=== PATIENT | male | born 1975 | race Caucasian/White ===

== ENCOUNTER 2025-07-13 21:06 | Emergency (ER) | payer BC, SELFPAY ==
[2025-07-13 21:17] VITALS: BP 108/73; BP 150/94; PULSE 93; RESP 18; TEMP 36.4; O2SAT 95; BMI 27.2
--- NOTE | 2025-07-13 21:45 | PC.NURSE ---
Poison control contacted regarding potential overdose. No special instructions given at this time.
[2025-07-13 21:46] LABS: MANUAL DIFF FLAG NO
[2025-07-13 21:47] LABS: Hematocrit 39.0 % (42.0-52.0); Hemoglobin 13.0 g/dl (14.0-18.0); Imm Gran Abs Auto 0.05 X10*3/uL (0.00-0.03); Imm Gran Pct Auto 0.8 % (0.0-0.4); Lymphocytes Absolute Auto 2.2 X10*3/uL (1.2-4.9); Mean Corpuscular HGB Conc 33.3 g/dl (31.0-36.0); Mean Corpuscular Hemoglobin 29.7 pg (27.0-33.0); Mean Corpuscular Volume 89.0 fL (80.0-98.0); NRBC Abs Auto 0.000 X10*3/uL (0.0-0.012); NRBC Pct Auto 0.0 /100WBC (0.0-0.2); Platelet Count 305 X10*3/uL (160-400); Red Blood Count 4.38 X10*6/uL (4.60-5.80); White Blood Count 6.5 X10*3/uL (4.8-10.8)
--- OUTSIDE RECORDS SUMMARY | 2025-07-13 21:55 | XMS_ITS | Data Portability ---
Author Organization [facility], [facility] Address [address] [place] [address] Care Team Providers Care Drafter Construction Name Role Phone SABINA YANG Primary Care Provider Assessment No assessment recorded. Plan of Treatment Reminders Order Date Submit Date Provider Last Modified By Organization Details Last Modified Time Details Appointments None recorded. Lab None recorded. Referral None recorded. Procedures None recorded. Surgeries None recorded. Imaging XR, wrist, 3 or more view - recheck pt 3 views left wrist rm [phone] [email or web address] [facility], [address], [place], [address], 5 15:36:28 XR, hand, 3 or more view - recheck pt 3 views right hand rm [phone] HAIM [facility] Office, [address], [address], [place], [address], 5 15:36:49 Medication Orders None recorded. Patient TargetsNo targets recorded. Patient InstructionsNo instructions recorded. Reason for Referral None Reported. Results Created Date Observation Date Name Description Value Unit Range Abnormal Flag Note LastModifiedBy Organization Detail LastModifiedTime 10/07/1910/07/2024 XR, wrist , 3 or more view [email or web address] ?Encry pted=s hAaTro YD8dLq bEUv6g %2BXZw aYqtaq 0bqfl% 2Fg9IQ a4ajBk vP9nXo QUaueC m3YtLR FvZlgJ JJ8mAn HZtai3 6i9058 AC0Kqb HmMUaO vKiQtr MwF INTERFACE [facility] [address] [address], [place], [address], 10/07/2024 15:35:08 10/07/19 25 10/07/2024 XR, wrist , 3 or more view [email or web address] ?Encry pted=s hAaTro YD8dLq bEUv6g %2BXZw aYqtaq 0bqfl% 2Fg9IQ a4ajBk vP9nXo QUaueC m3YtLR FvZlgJ JJ8mAn HZtai3 5w5056 AC0Kqb HmMUaO vKiQtr MwF INTERFACE [facility] [address], [address], 10/07/2024 15:35:10 10/07/19 25 10/07/2024 XR, hand, 3 or more view [email or web address] ?Encry pted=s hAaTro YD8dLq bEUv6g %2BXZw aYqtaq 0bqfl% 2Fg9IQ a4ajBk vP9nXo QUaueC m3YtLR FvZlgJ JJ8mAn HZtai3 5r4021 AC0Kqb HmMUaG jKiQtr MwF INTERFACE [facility] [address] [address], [place], [address], 10/07/2024 15:36:50 10/07/19 25 10/07/2024 XR, hand, 3 or more view [email or web address] ?Encry pted=s hAaTro YD8dLq bEUv6g %2BXZw aYqtaq 0bqfl% 2Fg9IQ a4ajBk vP9nXo QUaueC m3YtLR FvZlgJ JJ8mAn HZtai3 4d1867 AC0Kqb HmMUaG jKiQtr MwF INTERFACE [facility] [address] [facility] [address], [place], [address], 10/07/2024 15:36:52 Result Notes Documentation Provider Name and Address Organization Details Recorded Time Xr, Wrist, 3 Or More View : [email or web address] Encrypted=orGrIotGS7aSwxO Uv6g%7MJIgaKbpmv5tesy%2Fg 4NZh8ppPlvV8oLsYNgzcRy4Cd QLLnFumLCY3aXlJRpjq37x759 9LM5ZfxChJFyJcGkTgoDuG Not Available [facility] 10/07/2024 15:35: 09 Xr, Wrist, 3 Or More View : [email or web address] Encrypted=zlNpKpoPI7fVpxA Uv6g%1WUPwpCnpka6mnyc%2Fg 2ZUa0rpVhmI8pUgLPdbiMi3Sl NJWfEtdDER1bSuKAaiw76v498 5TT5YwsUcVFbHvZlBzlXmX Not Available [facility] 10/07/2024 15:35: 11 Xr, Hand, 3 Or More View : [email or web address] Encrypted=xoZlSjoVN6lMmzA Uv6g%0WADvsZnyrc9frqp%2Fg 7CIt6kxTobL4tLtRStuvFe1Lc WYFjJhkDQM0oCgPDkzt90o939 3UX8VnmHhBGeRkXsAhkOzO Not Available [facility] 10/07/2024 15:36: 50 Xr, Hand, 3 Or More View : [email or web address] Encrypted=ksBnOkmKV3zBmqO Uv6g%4AXEqdPwbsw2kfsc%2Fg 3VRv3uzBfhF7jUiFKhpyRd6Ct JKKtMlvVER0iVzLKwdi22d461 6NA7IjcNoREbNcHdGzsOrC Not Available [facility] 10/07/2024 15:36: 52 Procedures Surgical History Date Name Laterality Status Provider Name and Address Organization Details Recorded Time 3 Shoulder Surgery completed Mansi Moran [place] - [facility] 10/07/2024 16:04:07 Imaging Results None recorded. Procedure Notes None recorded. Medical Equipment None Reported. Medications Name Sig Start Date Stop Date Status Note LastModified by Organization Details LastModified Time buspirone 5 mg tablet TAKE 1 TABLET BY MOUTH TWICE DAILY 10/02 completed Not Available Not Available Not Available cetirizine 10 mg tablet TAKE 1 TABLET BY MOUTH EVERY DAY active Not Available Not Available No t Available prednisone 20 mg tablet TAKE 3 TABLETS BY MOUTH DAILY FOR 3 DAYS THEN TAKE 2 TABLETS BY MOUTH DAILY FOR 3 DAYS THEN TAKE 1 TABLET BY MOUTH DAILY FOR 3 DAYS 10/02 completed Not Available Not Available Not Available dextroamphe tamine-amph etamine 10 mg tablet TAKE 1 TABLET BY MOUTH TWICE DAILY 10/02 completed Not Available Not Available Not Available sertraline 100 mg tablet TAKE 1 TABLET BY MOUTH DAILY 10/02 completed Not Available Not Available Not Available triamcinolo ne acetonide 0.1 % topical cream APPLY A THIN FILM TO THE AFFECTED AREA TWICE DAILY X14 DAYS 10/02 completed Not Available Not Available Not Available lamotrigine 25 mg tablet TAKE 2 TABLETS BY MOUTH TWICE DAILY 10/02 completed Not Available Not Available Not Available dextroamphe tamine-amph etamine 30 mg tablet TAKE 1 TABLET BY MOUTH TWICE DAILY 10/02 completed Not Available Not Available Not Available dextroamphe tamine-amph etamine 20 mg tablet TAKE 1 TABLET BY MOUTH TWICE DAILY 10/02 completed Not Available Not Available Not Available sertraline 25 mg tablet TAKE 1 TABLET BY MOUTH DAILY FOR 14 DAYS 10/02 completed Not Available Not Available Not Available omeprazole 20 mg capsule,del ayed release TAKE ONE CAPSULE BY MOUTH TWICE DAILY active Not Available Not Available No t Available montelukast 10 mg tablet TAKE 1 TABLET BY MOUTH DAILY BEFORE DINNER active Not Available Not Available No t Available sertraline 50 mg tablet TAKE 1 TABLET BY MOUTH DAILY. START IN 2 WEEKS AFTER COMPLETIN G THE 25 MG 10/02 completed Not Available Not Available Not Available lamotrigine 100 mg tablet TAKE 1 TABLET BY MOUTH TWICE DAILY active Not Available Not Available No t Available methylpheni date ER 27 mg tablet,exte nded release 24 hr TAKE 1 TABLET BY MOUTH TWICE DAILY 10/02 completed Not Available Not Available Not Available aripiprazol e 10 mg tablet TAKE 1 TABLET BY MOUTH DAILY active Not Available Not Available No t Available Adderall (30mg) active Not Available Not Available Not Available aripiprazol e ARIPipraz ole 10MG Tablet 2022 active Statu s: 'Curr ent'; Not Available Not Available Not Available Horizon Nasal Cpap System active Not Available Not Available Not Available oxycodone HCl-oxycodo ne-ASA as directed 1 Tab po Q 4-6 hrs prn pain. DO NOT DRIVE WHILE TAKING THIS MEDICATIO N 10/02 completed Statu s: 'Curr ent'; Not Available Not Available Not Available PreviDent 5000 Booster Plus 1.1 % dental paste APPLY TO TEETH AND BRUSH TWICE DAILY AFTER A MEAL DO NOT RINSE AO DRINK WATER FOR 30 MINUTES AFTER active Not Available Not Available No t Available Vitals Date Recorded Body height Body mass index (BMI) Body weight Provider Name and Address Organization Details Last Updated DateTime 10/07/2024 165.1 cm 27 kg/m2 95761.96 g Mansi Moran [place] - [facility] 10/07/2024 15:28:35 Social History None recorded. Functional Status None recorded. Mental Status None recorded. Family History Nothing Reported. Medical History No medical history recorded. Past Encounters Encounter ID Performer Location Encounter Start Date Encounter Closed Date Diagnosis/Indication Diagnosis SNOMED-CT Code Diagnosis ICD10 Code Diagnosis IMO Codes Diagnosis Note [id number] [facility]THONY [address] [address] [facility] [place] [address] 10/07/2024 15:01:01 10/14/2024 10:07:09 Pain of left wrist 9859625010 18691 M25.532 [id number] Ulnar impa ction syndrome of left wrist 6576749309 1470216 M25.832 [id number] Health Concerns Section Related Observation LastModified by Organization Anjelica horne LastModified Time None Recorded Concern Status LastModified by Organization Details LastModified Time None Recorded Advance Directives Directive None Recorded Payers Insurance Date Sequence Insurance Name Policy Number Policy Amato Covered Member ID Amato Member ID Guarantor Name 10/14/2024 1 [place]: [employer] [address] Willam Dickerson [id number] Willam Dickerson Notes Date Note Type Note Provider Name and Address Organization Details Recorded Time 10/07/2024 text/html I am seeing this patient under the supervision of Dr. Brown who was available but who did not see the patient. HPI: Patient is a 49-year-old male presenting to the office today for evaluation of right wrist pain. Reports this has been ongoing for the past couple of years. Reports the pain is intermittent. He is unable to localize a particular area of pain. Reports there are no particular triggers for the pain. Denies recent falls or injuries. Patient denies numbness or tingling. Of note, patient has been seen here for right wrist pain back [place] [address] Brown who diagnosed him with ulnar impaction syndrome. He also obtained an EMG back then which was normal. Past family, medical, social history and review of systems has been reviewed, updated and is located in the patient's chart. Examination: The patient is well appearing, alert and oriented x3 and in no acute distress. Inspection of the right hand and wrist reveals no edema, atrophy, erythema, ecchymoses or deformity. Skin is intact, no open wounds. Full movement of the forearm, wrist and digits. Intact median and ulnar innervated intrinsics. Intact extrinsic wrist and digit flexors and extensors. Intact sensation of median, ulnar and radial nerve distributions. Good capillary refill. Patient is tender around the TFCC region. Otherwise nontender about the wrist, hand, and digits. Median nerve compression test causes some numbness and tingling in the fourth and fifth fingers. Positive Synergy test. X-rays ordered, obtained and reviewed independently today at [facility]: 6 view x-rays of the right hand and wrist reveal no acute fractures or dislocations. Mild positive ulnar variance noted. Impression: Right wrist ulnar impaction syndrome, possible atypical carpal tunnel syndrome presentation Plan: I discussed my findings and the situation with the patient. We discussed potential treatment options at this time including anti-inflammatories , wrist brace, occupational therapy, and cortisone injection. We discussed the option of an MRI given his chronic symptoms, however we discussed that it will likely not change our treatment especially as he has not consistently tried many extensive conservative treatments at this time. Patient would like to hold off on an injection for now as he is not having symptoms currently. He was given a prescription for a wrist lacer brace to utilize when his symptoms flareup again and he will call the office when this occurs. At that time we can consider possible cortisone injection for the right wrist TFCC region. Patient understands and agrees with this plan. All questions were answered. The patient is ambulatory, but has weakness and/or instability of their extremity which requires stabilization from this semi-rigid/rigid orthosis to improve their function. Verbal and written instructions for the use and application of this item were given. Patient was instructed that should the brace result in increased pain, decreased sensation, increased swelling or an overall worsening of their medical condition, to please contact our office immediately. Speech recognition bus cleaner software was used to create portions of this document. An attempt at proofreading has been made to minimize errors. Please call for corrections. Anahi Kirkpatrick PA-C [facility] [address], [place], [address], [facility] - [facility] 10/07/2024 16:34:29
--- OUTSIDE RECORDS SUMMARY | 2025-07-13 21:55 | XMS_ITS | Clinical Summary ---
Author Organization [facility] Health Address [address] [place] [address] Care Team Providers Care Legal Practice Manager Name Role Phone Unavailable Primary Care Provider Unavailabl e Social History Tobacco Use Types Packs/Day Years Used Date Smoking Tobacco: Never Assessed Sex and Gender Information Value Date Recorded Sex Assigned at Not on file Legal Sex Male 8:48 PM PST Gender Identity Not on file Sexual Orientation Not on file Plan of Treatment Not on file
--- OUTSIDE RECORDS SUMMARY | 2025-07-13 21:55 | XMS_ITS | Encounter Summary ---
Author Organization [facility] Address [address] [place] [address] Care Team Providers Care Elevator Repairer Helper Name Role Phone Unavailable Primary Care Provider Unavailabl e Prior Encounters Date Type Department Care Team Description 09/21/2019 Converted 13x Documents [facility] [address], [place] [address] <No scans attached> 09/21/2019 Converted CPS Chart Documents [facility] [address], [place] [address] <No scans attached> Plan of Treatment Not on file Procedures Procedure Name Priority Date/Time Associated Diagnosis Comments ORAL HYGIENE INSTRUCTIONS Routine 2015 12:00 AM PDT TOPICAL APPLICATION OF FLUORIDE VARNISH Routine 01/19/2016 12:00 AM PDT PROPHYLAXIS - ADULT Routine 01/19/2016 1 2:00 AM PDT PERIODIC ORAL EVALUATION - ESTABLISHED PATIENT Routine 01/19/2016 12:00 AM PDT OFFICE VISIT FOR OBSERVATION (DURING REGULARLY SCHEDULED HOURS) - NO OTHER SERVICES PERFORMED Routine 01/13/2016 12:00 AM PDT 19 RECEMENT CROWN Routine 10/18/2015 12: 00 AM PST 19 CERECFIRED CROWNPOST Routine 10/18/19 16 12:00 AM PST OFFICE VISIT FOR OBSERVATION (DURING REGULARLY SCHEDULED HOURS) - NO OTHER SERVICES PERFORMED Routine 10/03/2015 12:00 AM PST 19 DO COMPOSITE FILLING Routine 07/22/20 15 12:00 AM PST 9 TURNER COMPOSITE FILLING Routine 07/22/20 15 12:00 AM PST 14 LO AMALGAM 2 SURFACE Routine 07/15/20 15 12:00 AM PST 30 B AMALGAM 1 SURFACE Routine 5 12:00 AM PST OCCLUSAL GUARD SOFT APPLIANCE, FULL ARCH Routine 07/15/2015 12:00 AM PST ORAL HYGIENE INSTRUCTIONS Routine 2014 12:00 AM PST TOPICAL APPLICATION OF FLUORIDE VARNISH Routine 07/15/2015 12:00 AM PST PROPHYLAXIS - ADULT Routine 07/15/2015 1 2:00 AM PST COMPREHENSIVE ORAL EVALUATION - NEW OR ESTABLISHED PATIENT Routine 07/15/2015 12:00 AM PST PANORAMIC RADIOGRAPHIC IMAGE Routine 07/15/2015 12:00 AM PST INTRAORAL - COMPREHENSIVE SERIES OF RADIOGRAPHIC IMAGES Routine 07/15/2015 12:00 AM PST INTRAORAL PHOTO Routine 07/15/2015 12:00 AM PST INTRAORAL PHOTO Routine 07/15/2015 12:00 AM PST INTRAORAL PHOTO Routine 07/15/2015 12:00 AM PST INTRAORAL PHOTO Routine 07/15/2015 12:00 AM PST 19 COMPOSITE FILLING Routine 015 12:00 AM PST 18 SHELEA COMPOSITE FILLING Routine 07/15/20 15 12:00 AM PST Visit Diagnoses Not on file
[2025-07-13 22:02] LABS: Alanine Aminotransferase 58 U/L (0-40); Albumin Level 4.3 g/dL (3.5-5.0); Alkaline Phosphatase 76 U/L (39-117); Anion Gap 14 (12-20); Aspartate Amino Transferase 37 U/L (5-37); Blood Urea Nitrogen 7 mg/dL (9-16); Calcium 9.7 mg/dL (8.4-10.2); Carbon Dioxide 28 mmol/L (22-29); Chloride 102 mmol/L (96-108); Creatinine Clr Calc Pharmacy 101.6; Estimated Glomerular Filt Rate > 60; Potassium 3.5 mmol/L (3.3-5.1); Sodium 140 mmol/L (135-145); Total Protein 6.7 g/dL (6.5-8.0)
[2025-07-13 22:15] LABS: Cannabinoid Screen Urine Not Detected (Not Detect)
--- NOTE | 2025-07-13 23:06 | PC.NURSE ---
pt reporting an anal fistula that was recently operated on. requesting gauze for area
[2025-07-13 23:38] VITALS: BP 93/65; PULSE 87; RESP 17; TEMP 36.4; O2SAT 98
--- NOTE | 2025-07-14 00:10 | ED.PSYCH ---
HPI - Psych General Chief Complaint: Psychiatric Symptoms Stated Complaint: Mental health crisis took r1dqrlxhxueh meds 150/94 Time Seen by Provider: 07/13/25 21:52 Source: patient, EMS, RN notes reviewed and old records reviewed History of Present Illness ED Provider: Dr. Liana Esqueda HPI Narrative: 49-year-old male with a history of depression, ADHD presenting with depression after breaking up with his girlfriend. Patient reports that his brother called 911 because he was worried about him. States ?I think he over-reacted?. He is prescribed amphetamines for ADHD. Had a recent surgery for an anal fistula and has been taking oxycodone for that but has not had any pain medication today. No reported fever. He denies feeling suicidal. States that he took an extra dose of his lamotrigine and Abilify because he ?thought it might help his severe depression?. He was never trying to hurt himself. Denies visual or auditory hallucinations. Denies any drug or alcohol use. He has no access to firearms. No history of suicide attempt. Related Data Allergies Allergy/AdvReac Type Severity Reaction Status Date / Time cats Allergy Unknown Unknown Uncoded 07/13/25 21:28 cats/dust Allergy Unknown Unknown Uncoded 07/13/25 21:28 seasonal Allergy Unknown Unknown Uncoded 07/13/25 21:28 Review of Systems Review of Systems: as per HPI, full review of systems performed and negative but for the above mentioned pertinent positives and negatives. [facility] Social History Social History Smoked in Last 30 Days: No Use of substances other than those prescribed or required for medical reasons: No Advance Directives: No Advance Directives Information Provided: No Physical Exam Exam: Exam: GENERAL: Conversant, no acute distress. SKIN: Normal skin color for ethnicity, warm, dry, no rashes noted. HEENT:? Normocephalic, atraumatic, no stridor, posterior oropharynx nonerythematous, dentition intact, EOMI. NECK: Soft, supple, full ROM, midline structures nontender, no step-offs, no deformities, no lymphadenopathy. CHEST: Heart regular rate and rhythm, no murmurs, symmetric chest rise and fall. PULMONARY: Clear to auscultation bilaterally, no labored breathing, no wheezes/rhales/rhonchi. ABDOMINAL: Soft, nondistended, nontender, positive bowel sounds in all quadrants. : Deferred. MUSCULOSKELETAL: Normal tone, full range of motion, no deformities, no peripheral edema. NEURO: Alert and oriented x3, CN II through XII intact, equal strength and sensation bilateral upper and lower extremities, no focal neurologic deficits.? PSYCHIATRIC: Flat affect, fluid speech, good eye contact and appropriate demeanor. Vital Signs: Vital Signs: Last Vital Signs Temp 97.6 F 07/14/25 02:39 Pulse 92 07/14/25 02:39 Resp 16 07/14/25 02:39 BP 115/70 07/14/25 02:39 Pulse Ox 100 07/14/25 02:39 O2 Del Method Room Air 07/14/25 02:39 BMI result Body Mass Index 27.2 Medical Decision Making Medical Decision Making [facility] Narrative: Patient presents with psychologic complaints. Differential diagnosis includes suicidal ideations, homicidal ideations, depression, anxiety, mood disorder, decompensated mental illnesses such as schizophrenia or bipolar disorder, medication noncompliance, among many others. Medical clearance protocol was initiated. Patient brought in as a section 12 by police. After my evaluation, I do not feel that the patient necessarily needs hospitalization, unless there is some suicidal concern raised by the family. He is mentating appropriately, not currently intoxicated and answering questions true fully. With an a crisis earlier today but is feeling improved. Patient evaluated by crisis team. Catalina spoke with his brother, Diego, who was actually involved in the situation leading up to the patient being hospitalized today. He has very little concern for self-harm today. Agrees that he is safe for discharge home. Patient is jil for safety. Feel it is reasonable for him to follow up with his mental health providers as an outpatient. Using shared decision making, plan for discharge home to follow-up with primary care and/or specialist. Patient understands and agrees with plan for discharge. Discharged home in stable condition. Differential Diagnosis Differential Diagnoses: The differential diagnosis associated with the presentation includes (as above) Admission/Observation Consideration of admission/observation: Escalation of care including admission/observation considered Consult Healthcare Provider Management of the patient was discussed with: Behavioral Health Provider Lab Data [facility] Lab Attestation statement: I reviewed the patient's lab results. 07/13/25 21:42 07/13/25 21:42 Labs: Lab Results 07/13/25 07/13/25 Range/Units 21:42 21:55 WBC 6.5 (4.8-10.8) X10*3/uL RBC 4.38 L (4.60-5.80) X10*6/uL Hgb 13.0 L (14.0-18.0) g/dl Hct 39.0 L (42.0-52.0) % MCV 89.0 (80.0-98.0) fL MCH 29.7 (27.0-33.0) pg MCHC 33.3 (31.0-36.0) g/dl RDW 12.9 (11.0-16.0) % Plt Count 305 (160-400) X10*3/uL MPV 8.2 L (9.4-12.4) fL Immature Gran % (Auto) 0.8 H (0.0-0.4) % Neut % (Auto) 51.9 (45-73) % Lymph % (Auto) 34.2 (20-40) % Mcdonald % (Auto) 10.3 (2-11) % Eos % (Auto) 2.0 (0-4) % Baso % (Auto) 0.8 (0-2) % Lymph # (Auto) 2.2 (1.2-4.9) X10*3/uL Mcdonald # (Auto) 0.7 (0.1-1.2) X10*3/uL Eos # (Auto) 0.1 (0.0-0.4) X10*3/uL Baso # (Auto) 0.1 (0.0-0.2) X10*3/uL Abs Immat Gran (auto) 0.05 H (0.00-0.03) X10*3/uL Absolute Neuts (auto) 3.4 (2.0-8.3) x10*3/uL Absolute Nucleated RBC 0.000 (0.0-0.012) X10*3/uL Nucleated RBC % (auto) 0.0 (0.0-0.2) /100WBC Sodium 140 (135-145) mmol/L Potassium 3.5 (3.3-5.1) mmol/L Chloride 102 (96-108) mmol/L Carbon Dioxide 28 (22-29) mmol/L Anion Gap 14 (12-20) BUN 7 L (9-16) mg/dL Creatinine 0.84 (0.5-1.4) mg/dL Estim Creat Clear Calc 101.6 Estimated GFR > 60 Random Glucose 97 (60-115) mg/dL Calcium 9.7 (8.4-10.2) mg/dL Total Bilirubin 0.2 (0.0-1.0) mg/dL AST 37 (5-37) U/L ALT 58 H (0-40) U/L Alkaline Phosphatase 76 (39-117) U/L Total Protein 6.7 (6.5-8.0) g/dL Albumin 4.3 (3.5-5.0) g/dL Urine Opiates Screen Not Detected (Not Detect) Ur Buprenorphine Scrn Not Detected (Not Detect) ng/mL Ur Oxycodone Screen Positive H (Not Detect) ng/mL Urine Methadone Screen Not Detected (Not Detect) ng/mL Urine Fentanyl Screen Not Detected (Not Detect) Ur Barbiturates Screen Not Detected (Not Detect) Ur Phencyclidine Scrn Not Detected (Not Detect) Ur Amphetamines Screen POSITIVE H (Not Detect) U Benzodiazepines Scrn POSITIVE H (Not Detect) Urine Cocaine Screen Not Detected (Not Detect) U Marijuana (THC) Screen Not Detected (Not Detect) Ethyl Alcohol < 10 mg/dL Independent Historian Clinical information obtained from an independent historian. History obtained from or confirmed by: EMS and Other (Diego Gonzales) External Record Review External record reviewed: Inpatient record Chronic Conditions Patient?s care impacted by: Other (Depression) Social Determinants Patient?s care significantly limited by Social Determinants of Health including: Other Social Determinant of Health Discharge Plan Discharge Clinical Impression: Depression Patient Disposition: Home, Self-Care Instructions: Depression (ED) Additional Instructions: You were seen in our Emergency Department today for treatment of a behavioral health issue. It is important after your visit that you follow up with either your behavioral health provider or a primary care doctor within 7 days.? If you have trouble finding a therapist you can reach out to [address] [phone] The National Suicide and Crisis Lifeline can be reached 7 days a week 24 hours a day.? Call 988 to speak with someone.? Return for any worsening symptoms or concerns such as thoughts of self harm or harm to others. Please call 911 if you feel your mental health is worsening.? Interventions: [place]-Suicide Risk Severity Scale Last Done: 07/13/25 23:39 ED Discharge Assessment Last Done: 07/14/25 02:39 Discharge Date/Time: 07/14/25 02:45 Print Language: Italian
--- NOTE | 2025-07-14 01:58 | MHC.CARE ---
CARE Team responded to a consult request to obtain collateral information from patient's brother Avtar, who called the police requesting a wellness check. CARE Team was unable to reach Avtar, but was able to speak with his brother Diego who was fully aware of the situation and involved in the text exchange. Diego reports patient reached out via text to report he had been thinking about his who he is currently going through a divorce/separation from. He stated this was not normal for patient as he has never reached out to his brothers in their brother group chat about his as he is aware they do not care for her and did not think they were a good fit from the beginning. Diego said patient reported he was very sad and was having a tough night. He then mentioned he would take medication and try to relax, but Diego states his brother Avtar was unaware patient is prescribed medication as he doesn't speak with him as much as Diego does. Diego states patient then was not responding right away to the texts from them which concerned Avtar who texted Diego directly outside of the group chat stating he had called the police for a wellness check. Patient later texted back stating he was playing video games with a friend, which is why he had not responded. Diego reported during that time, patient also was not responding to their calls which further concerned Avtar. Diego says he feels Avtar overreacted, though he understands why the wellness check was requested. Diego states that because he is in contact with patient much more than Avtar is, he understands what's going on and knows his situation as it relates to being in therapy and on medication. Diego denies any concerns related to patient being discharged and also states he would not have called the police. He denies any knowledge of any prior suicide attempts and states patient is safe, has children he is involved with heavily and who he would note to be a protective factor in patient's life. Diego offered to pick patient up at d/c. CARE Team agreed to speak with patient about being transported via [employer] or getting picked up by his brother and he opted for [employer], stating he did not want his brother to drive an hour just to give him a ride home. Patient has been cleared by the CARE Team and Dr. Liana Esqueda who advocated for d/c if collateral was obtained.
--- NOTE | 2025-07-14 02:28 | PC.NURSE ---
pt calm and cooperative, cleared by care team and MD for d/c
[2025-07-14 02:34] VITALS: BP 115/70; PULSE 92; RESP 16; TEMP 36.4; O2SAT 100
[2025-07-14 02:39] VITALS: BP 115/70; PULSE 92; RESP 16; TEMP 36.4; O2SAT 100
== END 2025-07-14 02:45 | disposition home or self-care (01) ==
PROVIDERS: Emergency Provider Emergency Medicine; PCP Nurse Practitioner Family
DX: F32.A Depression, unspecified (principal); F90.9 Attention-deficit hyperactivity disorder, unspecified type; Z79.899 Other long term (current) drug therapy; Z98.890 Other specified postprocedural states
CPT/HCPCS: 36415; 80053; 80307; 85025; 99284; 99285